=== PATIENT | male | born 1965 | race Caucasian/White ===

== ENCOUNTER 2025-05-12 12:55 | Emergency (ER) | payer BC, SELFPAY ==
--- OUTSIDE RECORDS SUMMARY | 2024-05-15 10:00 | XMS_ITS ---
Author Organization [facility] Address [address] [place] [address] Care Team Providers Care Vfx Artist Name Role Phone Chavo Marin MD Primary Care Provider Chyna Burkett Unavailable [phone] Robert Deluna Unavailable [phone] REASON FOR VISIT Screening for colon cancer Medications Medication SIG (Take, Route, Frequency, Duration) Notes Start Date End Date Status Vitamin D3 125 MCG (5000 UT) Capsule 1 capsule Orally Once a day Active Vitamin B-1 250 MG Tablet 1 tablet Orally daily Patient is taking 300 mg daily Active Reglan 10 MG Tablet 1 tablet as directed Orally once; Duration: 1 day 05/01/2024 Active Zinc Gluconate 30 MG Tablet 1 tablet Ora lly Once a day Active amLODIPine Besylate 5 MG Tablet 1 tablet Orally Once a day; Duration: 30 days 05/09/2024 Active Vitamin B Complex - Capsule 1 capsule Orally daily 05/01/2024 Active Tamsulosin HCl 0.4 MG Capsule 1 capsule Orally Once a day Active Losartan Potassium 50 MG Tablet 1 tablet twice a day; Duration: 90 days Active Quercetin Complex Immune - Capsule 1 capsule Orally daily Activ e Kenton 3 1000 MG Capsule 1 capsule Orally Three times a day Active Aspirin Adult Low Dose 81 MG Tablet Delayed Release 1 tablet Orally Once a day Active Bisoprolol Fumarate 5 MG Tablet 1 tablet Orally Once a day; Duration: 30 days 03/30/2024 Active Chromium GTF 200 MCG Tablet 1 tablet Ora lly Once a day Active Chlorthalidone 50 MG Tablet 1 tablet in the morning with food Orally once daily; Duration: 90 days Active Green Tea 250 MG Capsule 1 capsule Orally daily Active Encounters Encounter Location Date Provider Diagnosis [facility] [address] [place] [address] 05/15/2024 Robert Deluna Plan Of Treatment Next Appt Details Provider Name:Vale rosen, 06/19/2025 01:00:00 PM, [address], [place], [address], Provider Name:Davey Houston , 09/11/2025 08:00:00 AM, [address] [place], [address], Provider Name:Davey Houston , 09/11/2025 08:30:00 AM, [address] [place], [address], Progress Notes * Davey BAXTERDOB:1965 (59 yo M)Acc No.[id number]:05/15/2024 History and Physical Patient: Davey Das Provider: Reynold Deluna MD :1965 A ge:58 Y S ex:Male Date:05/15/2024 Address:[address] Pcp:Chavo Marin MD Check Out:09:09 AM [facility] Subjective: * Chief Complaints: * S creening for colon cancer * Medications: T akingAspirin Adult Low Dose 81 MG Tablet Delayed Release 1 tablet Orally Once a day Bisoprolol Fumarate 5 MG Tablet 1 tablet Orally Once a day Chlorthalidone 50 MG Tablet 1 tablet in the morning with food Orally once daily Chromium GTF 200 MCG Tablet 1 tablet Orally Once a day Green Tea 250 MG Capsule 1 capsule Orally daily Losartan Potassium 50 MG Tablet 1 tablet twice a day Kenton 3 1000 MG Capsule 1 capsule Orally Three times a day Quercetin Complex Immune - Capsule 1 capsule Orally daily Tamsulosin HCl 0.4 MG Capsule 1 capsule Orally Once a day Vitamin B Complex - Capsule 1 capsule Orally daily Vitamin B-1 250 MG Tablet 1 tablet Orally daily Patient is taking 300 mg dailyVitamin D3 125 MCG (5000 UT) Capsule 1 capsule Orally Once a day Zinc Gluconate 30 MG Tablet 1 tablet Orally Once a day Reglan 10 MG Tablet 1 tablet as directed Orally once amLODIPine Besylate 5 MG Tablet 1 tablet Orally Once a day Taking Aspirin Adult Low Dose 81 MG Tablet Delayed Release 1 tablet Orally Once a day Taking Bisoprolol Fumarate 5 MG Tablet 1 tablet Orally Once a day Taking Chlorthalidone 50 MG Tablet 1 tablet in the morning with food Orally once daily Taking Chromium GTF 200 MCG Tablet 1 tablet Orally Once a day Taking Green Tea 250 MG Capsule 1 capsule Orally daily Taking Losartan Potassium 50 MG Tablet 1 tablet twice a day Taking Kenton 3 1000 MG Capsule 1 capsule Orally Three times a day Taking Quercetin Complex Immune - Capsule 1 capsule Orally daily Taking Tamsulosin HCl 0.4 MG Capsule 1 capsule Orally Once a day Taking Vitamin B Complex - Capsule 1 capsule Orally daily Taking Vitamin B-1 250 MG Tablet 1 tablet Orally daily Patient is taking 300 mg dailyTaking Vitamin D3 125 MCG (5000 UT) Capsule 1 capsule Orally Once a day Taking Zinc Gluconate 30 MG Tablet 1 tablet Orally Once a day Taking Reglan 10 MG Tablet 1 tablet as directed Orally once Taking amLODIPine Besylate 5 MG Tablet 1 tablet Orally Once a day Billing Information: * Procedure Codes: * Electronic signature of Bobd brendan Deluna MD on 05/12/2025 at 01:03 PM [facility] Sign off status: Pending * Provider: Reynold Deluna MD Date: 07/16/2023 Generated for Jessica fletcher/Raheem/Rigo on: 07/13/2024 01:03 PM [facility]
--- OUTSIDE RECORDS SUMMARY | 2024-09-11 02:00 | XMS_ITS ---
Author Organization [facility] Address [address] [place] [address] Care Team Providers Care Finish Repairer Name Role Phone Tomas VELOZ, Chavo Primary Care Provider Chyna Burkett Unavailable [phone] Davey Houston Unavailable [phone] Encounters Encounter Location Date Provider Diagnosis [facility] [address] [place] [address] 09/11/2024 Davey Houston Plan Of Treatment Next Appt Details Provider Name:Vale rosen, 06/19/2025 01:00:00 PM, [address], [place], [address], Provider Name:Davey Houston , 09/11/2025 08:00:00 AM, [address] [place] [address], [place], [address], Provider Name:Davey Houston , 09/11/2025 08:30:00 AM, [address] [place] [address], [place], [address], Progress Notes * Davey BAXTERDOB:1965 (59 yo M)Acc No.[id number]:09/11/2024 Patient: Davey Das Provider: Hunter Houston MD :1965 A ge:58 Y S ex:Male Date:09/11/2024 Address: [address] [place], [place] [phone] Pcp:Chavo Marin MD Check In:07:50 AM CSTCheck O ut:08:25 AM PROGRAMMING DIRECTOR Billing Information: * Procedure Codes: * Electronic signature of Gricelda Houston MD on 05/12/2025 at 01:03 PM PROGRAMMING DIRECTOR Sign off status: Pending * Provider: Hunter Houston MD Date: 0 09/11/2024 Generated for Jessica fletcher/Raheem/Salvatoreitting on: 1 07/13/2024 01:03 PM PROGRAMMING DIRECTOR
--- OUTSIDE RECORDS SUMMARY | 2024-09-18 01:15 | XMS_ITS ---
Author Organization [facility] Address [address] [place] [address] Care Team Providers Care Blacktop Spreader Name Role Phone Tomas VELOZ, Chavo Primary Care Provider Chyna Burkett Unavailable [phone] Davey Houston Unavailable [phone] Encounters Encounter Location Date Provider Diagnosis [facility] [address] [place] [address] 09/18/2024 Davey Houston Plan Of Treatment Next Appt Details Provider Name:Vale rosen, 06/19/2025 01:00:00 PM, [address], [place], [address], Provider Name:Davey Houston , 09/11/2025 08:00:00 AM, [address] [place] [address], [place], [address], Provider Name:Davey Houston , 09/11/2025 08:30:00 AM, [address] [place] [address], [place], [address], Progress Notes * Davey BAXTERDOB:1965 (59 yo M)Acc No.[id number]:09/18/2024 Patient: Davey Das Provider: Hunter Houston MD :1965 A ge:58 Y S ex:Male Date:09/18/2024 Address: [address] [place], [place] [phone] Pcp:Chavo Marin MD Check In:07:05 AM CSTCheshanti Roberts ut:07:47 AM JEEP DRIVER Billing Information: * Procedure Codes: * Electronic signature of Gricelda Houston MD on 05/12/2025 at 01:04 PM JEEP DRIVER Sign off status: Pending * Provider: Hunter Houston MD Date: 0 09/18/2024 Generated for Jessica fletcher/Raheem/Salvatoreitting on: 1 07/13/2024 01:04 PM JEEP DRIVER
--- OUTSIDE RECORDS SUMMARY | 2024-09-25 01:15 | XMS_ITS ---
Author Organization [facility] Address [address] [place] [address] Care Team Providers Care Billboard Poster Name Role Phone Tomas VELOZ, Chavo Primary Care Provider Chyna Burkett Unavailable [phone] Davey Houston Unavailable [phone] Encounters Encounter Location Date Provider Diagnosis [facility] [address] [place] [address] 09/25/2024 Davey Houston Plan Of Treatment Next Appt Details Provider Name:Vale rosen, 06/19/2025 01:00:00 PM, [address], [place], [address], Provider Name:Davey Houston , 09/11/2025 08:00:00 AM, [address] [place] [address], [place], [address], Provider Name:Davey Houston , 09/11/2025 08:30:00 AM, [address] [place] [address], [place], [address], Progress Notes * Davey BAXTERDOB:1965 (59 yo M)Acc No.[id number]:09/25/2024 Patient: Davey Das Provider: Hunter Houston MD :1965 A ge:58 Y S ex:Male Date:09/25/2024 Address: [address] [place], [place] [phone] Pcp:Chavo Marin MD * Electronic signature of Gricelda Houston MD on 05/12/2025 at 01:05 PM DIRECTOR EMPLOYEE COMMUNICATIONS Sign off status: Pending * Provider: Hunter Houston MD Date: 0 09/25/2024 Generated for Jessica fletcher/Raheem/Salvatoreitting on: 1 07/13/2024 01:05 PM DIRECTOR EMPLOYEE COMMUNICATIONS
--- OUTSIDE RECORDS SUMMARY | 2024-10-02 07:00 | XMS_ITS ---
Author Organization [facility] Address [address] [place] [address] Care Team Providers Care Data Control Assistant Name Role Phone Tomas VELOZ, Chavo Primary Care Provider Chyna Burkett Unavailable [phone] Davey Houston Unavailable [phone] Encounters Encounter Location Date Provider Diagnosis [facility] [address] [place] [address] 10/02/2024 Davey Houston Plan Of Treatment Next Appt Details Provider Name:Vale rosen, 06/19/2025 01:00:00 PM, [address], [place], [address], Provider Name:Davey Houston , 09/11/2025 08:00:00 AM, [address] [place] [address], [place], [address], Provider Name:Davey Houston , 09/11/2025 08:30:00 AM, [address] [place] [address], [place], [address], Progress Notes * Davey BAXTERDOB:1965 (59 yo M)Acc No.[id number]:10/02/2024 Patient: Davey Das Provider: Hunter Houston MD :1965 A ge:59 Y S ex:Male Date:10/02/2024 Address: [address] [place], [place] [phone] Pcp:Chavo Marin MD Check In:12:48 PM CSTCheck O ut:01:39 PM DIRECTOR CONSUMER AFFAIRS Billing Information: * Procedure Codes: * Electronic signature of Gricelda Houston MD on 05/12/2025 at 01:05 PM DIRECTOR CONSUMER AFFAIRS Sign off status: Pending * Provider: Hunter Houston MD Date: 0 10/02/2024 Generated for Jessica fletcher/Raheem/Salvatoreitting on: 1 07/13/2024 01:05 PM DIRECTOR CONSUMER AFFAIRS
--- OUTSIDE RECORDS SUMMARY | 2025-05-08 11:00 | XMS_ITS ---
Author Organization [facility] Address [address] [place] [address] Care Team Providers Care Pin Inserter Name Role Phone Chavo Marin Primary Care Provider UnavailFRANCE Balbuena Unavailable [phone] Valdemar Larkin MD Unavailable Lasha Pichardo Unavailable [phone] REASON FOR VISIT 3-4 mo w/ labs Encounters Encounter Location Date Provider Diagnosis [facility] [address] [place] [facility] [place] [address] 05/08/2025 Lasha Pichardo Plan Of Treatment Next Appt Details Provider Name:Lasha Kylee, 05/21/2025 09:20:00 AM, [address] [place], [address], Progress Notes * Davey BAXTERDOB:1965 (59 yo M)Acc No.[id number]:05/08/2025 Progress Notes Patient: Randell DUNNE Davey Talbert Provider: Imelda Pichardo APRN :1965 A ge:59 Y S ex:Male Date:05/08/2025 Address:[address] [place], [place] [phone] Pcp:Chavo Marin Subjective: * Chief Complaints: * 1 . 3-4 mo w/ labs. * Medical History: Objective: * Vitals: Assessment: Plan: * Treatment: * Billing Information: * Visit Code: * Procedure Codes: * Electronic signature of Meliton Pichardo APRN on 05/12/2025 at 01:03 PM BARREL CAP SETTER Sign off status: Pending * Provider: Imelda Pichardo APRN Date: 07/09/2024 Generated for Jessica Theodore on: 07/13/2024 01:03 PM BARREL CAP SETTER
[2025-05-12 13:01] VITALS: BP 148/75; PULSE 98; RESP 26; TEMP 36.6; O2SAT 96; BMI 37.6
[2025-05-12 13:03] VITALS: PULSE 95; O2SAT 100
--- NOTE | 2025-05-12 13:03 | ECG_ITS ---
[facility] Test Date: 2025-05-12 Pat Name: Davey Baxter Department: Room: Gender: Male Team Foreman: : 1965 Requested By: Mily Mejias Order Number: [id number] Mingo MD: Miki Horn M.D. Measurements Intervals [place] Rate: 89 P: 58 GA: 167 QRS: 33 QRSD: 96 T: 42 QT: 342 QTc: 417 Interpretive Statements SINUS RHYTHM WITH SINUS ARRHYTHMIA No previous ECG available for comparison Electronically Signed On 05-12-2025 19:22:38 SURGICAL CODER by Miki Horn M.D. [email or web address]
--- OUTSIDE RECORDS SUMMARY | 2025-05-12 13:03 | XMS_ITS | Patient Health Record ---
Author Organization [facility] Address [address] [place] [address] Care Team Providers Care Civil Engineering Technician Name Role Phone MARIELENA ARREDONDO Primary Care Provider PETRONA Sanchez Unavailable [phone] Allergies Allergen (clinical drug ingredient) Drug/Non Drug Allergy documented on EMR Reaction Allergy Type Onset Date Status Substance with penicillin structure and antibacterial mechanism of action (substance) Penicillins shortness of breath Drug Allergy Active Results Component Value Reference Range Notes CBC Reflex Man Diff 76682, 8 5007 Reviewed date:04/23/2025 04:52:09 PM Interpretation: Performing Lab: Notes/Report: WBC 10.5 4.5-11.0 X10'3 RBC 4.75 4.50-5.90 X10'6 Hgb 14.5 13.5-17.5 G/DL Hct 42.8 41.0-53.0 % MCV 90.1 80.0-100.0 FL MCH 30.5 27.0-31.0 PG MCHC 33.9 31.0-37.0 G/DL Platelet 287 150-400 X10'3 RDW-SD 42.3 35.0-49.0 FL RDW-CV 12.7 12.2-15.6 % MPV 10.0 9.2-12.0 FL Review Auto Diff Conf Testing perfo rmed at: [facility] [address] [place] [address] CLIA ID [id number] Estradiol Level 19864 Reviewed date:04/23/2025 04:51:50 PM Interpretation: Performing Lab: Notes/Report: Estradiol 77 Males < 0-52 Follicular Phase 11-165 Midcycle 146-526 Luteal Phase 33-133 Postmenopausal Female < 0-37 Test performed with Siemens Estradiol reagent assay. Siemens has confirmed the drug fulvestrant (Faslodex) may cause falsely elevated estradiol results when performed with this assay method. Fulvestrant (Faslodex) is an estrogen receptor antagonist which is used in the treatment of stage IV recurrent breast cancer in post-menopausal women with estrogen receptor positive breast cancer. Fulvestrant is used when other anti-estrogen drugs have failed. Fulvestrant has a similar chemical structure to estradiol and may cross-react with antibodies used in immunoassays. Testing performed at: [address] [place] [address] CLIA ID [id number] LH, Luteinizing Hormone 8300 2 Reviewed date:04/23/2025 04:51:47 PM Interpretation: Performing Lab: Notes/Report: Luteinizing Hrm 14.78 Reference Ranges: Normal menstruating. Follicular Phase 1.9-12.5. Midcycle Peak 8.7-76.3. Luteal Phase 0.5-16.9. <0.1-1.5. Postmenopausal 15.9-54.0. Contraceptives 0.7-5.6. Males 20-70 Years 1.5-9.3. >70 Years 3.1-34.6. Performed on the [employer] Solution IM Testing performed at: [address] [place] [address] CLIA ID [id number] Testosterone Total 73519 Reviewed date:04/23/2025 04:52:01 PM Interpretation: Performing Lab: Notes/Report: Testoster Tot 570.19 87.00-780.00 NG/DL Performed on the [employer] IM Analyzer Testing performed at: [address] [place] [address] CLIA ID [id number] WBC Auto Diff--51550 Reviewed date:04/23/2025 04:52:05 PM Interpretation: Performing Lab: Notes/Report: Added by Discern Rules Neutro Auto% 70.1 40.0-70.0 % Lymph Auto% 20.1 22.0-44.0 % [place] Auto% 6.7 3.0-7.0 % Eos Auto% 1.5 2.0-4.0 % Baso Auto% 0.9 0.0-1.0 % NRBC% .00 .00-.20 /100 int act WBC's Neutro Abs 7.34 .80-7.70 Absolute Neutrophil Count 7340 Lymph Abs 2.10 .10-4.10 [place] Abs .70 .20-1.00 Eos Abs .16 .00-.40 Baso Abs .09 .00-.20 NRBC# .00 .00-.20 Imm Gran Abs .07 .00-.10 Imm Gran% .7 .0-.4 % Testing perform ed at: [address] [address] CLIA ID [id number] Reason For Referral No Information Medications Medication SIG (Take, Route, Frequency, Duration) Notes Start Date End Date Status Cinnamon 500 MG as directed Orally Active B Complex 100 Active Chlorthalidone 25 MG 1 tablet in the mor sae with food Orally Once a day Active Zinc 100 MG 1 tablet Orally Once a day Active Lisinopril 20 MG 1 tablet Orally twic e a day Active Simvastatin 20 MG 1 tablet in the even ing Orally Once a day Active Doxycycline Hyclate 100 MG 1 capsule Ora lly two times a day Active Airborne Gummies - as directed Orally Active Gugvz-3-annj Ethyl Esters 1 GM 2 capsules Orally Twice a day Active Apple Cider Vinegar 500 MG as directed Orally Active Quercetin Complex Immune - as directed Orally Active Vitamin D3 10 MCG (400 UNIT) 1 tablet Or ally Once a day Active Silymarin - as directed Orally Active Problems Problem Type SNOMED Code ICD Code Onset Dates Problem Status W/U Status Risk Notes Problem Abdominal aortic aneurysm without rupture (03186355) Abdominal aortic aneurysm, without rupture (I71.4) Active confirmed Problem Acute prostatitis (14664460) Acute prostatitis (N41.0) Active confirmed Problem Erectile dysfunction co-occurrent and due to arterial insufficiency (disorder) (050559227475666) Erectile dysfunction due to arterial insufficiency (N52.01) Active confirmed Problem Benign prostatic hypertrophy without outflow obstruction (151661415) Benign prostatic hyperplasia without lower urinary tract symptoms (N40.0) Active confirmed Plan Of Treatment Pending Test Test Name Order Date PSA, TOTAL (5363) 05/12/2021 Insurance Providers Payer Name Payer Address Payer Phone Subscriber Number Group Number Insured Name Patient Relationship to Insured Coverage Start Date Coverage End Date [employer] OF [employer] [address] [place] [address] [phone] [id number] Davey Baxter Self - patient is the insured Medical (General) History Medical History History ICD Code melanoma High Blood Pressure Elevated PSA Hyperlipidemia
--- OUTSIDE RECORDS SUMMARY | 2025-05-12 13:03 | XMS_ITS | Patient Health Record ---
Author Organization [facility] Address [address] [place] [address] Care Team Providers Care Associate Dean Of Students Name Role Phone Chavo Marin MD Primary Care Provider Chyna Burkett Unavailable [phone] Robert Deluna Unavailable [phone] JevonDavey granda Unavailable [phone] Gorge Valentine Unavailable [phone] Allergies Allergen (clinical drug ingredient) Drug/Non Drug Allergy documented on EMR Reaction Allergy Type Onset Date Status bee stings Unknown Allergy Active Substance with penicillin structure and antibacterial mechanism of action (substance) penicillins Unknown Drug Allergy Active Results Component Value Reference Range Notes US Doppler Renal Artery-9397 5 Reviewed date:10/13/2024 11:19:00 AM Interpretation: Performing Lab: Notes/Report: See Below For Report US Doppler Renal Artery Read See Below For Report Echo with and without Contra st [id number] Reviewed date:10/13/2024 11:17:28 AM Interpretation: Performing Lab: Notes/Report: Cardiopulmonary Services Name: DAVEY BAXTER Study Date: 10/02/2024 : 1965 Patient Location: [facility] Age: 59 yrs Gender: Male Height: 68 in Weight: 266 lb BP: 142/78 mmHg HR: 60 BSA: 2.3 m2 History: SOB, HTN, hyperlipidemia, CAD Reason For Study: SOB Interpretation Summary A complete two-dimensional transthoracic echocardiogram was performed (2D, M- mode, Doppler and color flow Doppler). This echocardiogram is technically difficult due to morbid obesity. Due to suboptimal imaging, lumason contrast agent was given to opacify the left ventricular chamber and to improve the left ventricular endocardial border. Left ventricular systolic function is borderline reduced. Left Ventricular Function is estimated to be 50-55%. There is borderline concentric left ventricular hypertrophy. The right ventricle is mild to moderately dilated. Small pericardial effusion. EKG Normal sinus rhythm. Left Ventricle The left ventricle is normal in size. There is borderline concentric left ventricular hypertrophy. Left Ventricular Function is estimated to be 50-55%. Left ventricular systolic function is borderline reduced. Due to suboptimal imaging, lumason contrast agent was given to opacify the left ventricular chamber and to improve the left ventricular endocardial border. Right Ventricle The right ventricle is mild to moderately dilated. The right ventricular systolic function is normal. Atria The left atrial size is normal. Right atrial size is normal. Pericardium/Pleural Small pericardial effusion. Mitral Valve The mitral valve is normal. There is trace mitral regurgitation. Aortic Valve There is mild aortic valve sclerosis without evidence of stenosis. No hemodynamically significant valvular aortic stenosis. Trace aortic regurgitation. Tricuspid Valve The triscupid valve leaflets appear normal. There is no stenosis, fluttering, or prolapse. There is trace tricuspid regurgitation. Pulmonic Valve The pulmonic valve is normal in structure and function. Trace pulmonic valvular regurgitation. MMode/2D Measurements & Calculations RVDd: 4.6 cm LVIDd: 5.4 cm FS: 21.3 % IVSd: 0.89 cm LVIDs: 4.2 cm EDV(Teich): 140.4 ml LVPWd: 0.98 cm ESV(Teich): 80.4 ml EF(Teich): 42.8 % asc Aorta Diam: 3.4 cm LVOT diam: 1.9 cm EDV(MOD-sp4): 134.4 ml ESV(MOD-sp4): 61.2 ml LVOT area: 2.9 cm2 EF(MOD-sp4): 54.4 % CO(MOD-sp4): 3.8 l/min SV(MOD-sp4): 73.2 ml Time Measurements Aortic HR: 50.0 BPM MM HR: 51.7 BPM Pulm. R-R: 1.2 sec Pulm. HR: 52.1 BPM Doppler Measurements & Calculations MV E max patrice: 69.8 cm/sec MV dec slope: 461.4 cm/sec2 Ao V2 max: 140.6 cm/sec MV A max patrice: 68.0 cm/sec MV dec time: 0.16 sec Ao max P.9 mmHg MV E/A: 1.0 Ao V2 mean: 103.2 cm/sec Ao mean P.8 mmHg Ao V2 VTI: 30.6 cm JARAD(I,D): 2.4 cm2 JARAD(V,D): 2.2 cm2 LV V1 max P.7 mmHg CO(LVOT): 3.6 l/min PA V2 max: 94.0 cm/sec LV V1 mean P.6 mmHg SV(LVOT): 72.2 ml PA max P.5 mmHg LV V1 max: 108.4 cm/sec PA V2 mean: 60.8 cm/sec LV V1 mean: 74.8 cm/sec PA mean P.7 mmHg LV V1 VTI: 24.8 cm PA V2 VTI: 20.0 cm PI end-d patrice: 60.3 cm/sec RV V1 max P.3 mmHg TR max patrice: 236.7 cm/sec RV V1 mean P.2 mmHg TR max P.4 mmHg RV V1 max: 75.9 cm/sec RV V1 mean: 49.6 cm/sec RV V1 VTI: 17.8 cm Ordering Physician: Davey Houston Referring Physician: Chyna Cobb Performed By: Sally Saunders RDCS US Doppler Renal Artery-9397 5 Reviewed date:10/13/2024 11:19:00 AM Interpretation: Performing Lab: Notes/Report: [id number]=iSite [id number]=iSite Echo with and without Contra st [id number] Reviewed date:10/13/2024 11:17:28 AM Interpretation: Performing Lab: Notes/Report: oat=[id number]=iSite US Doppler Renal Artery-9397 5 Reviewed date:09/04/2024 09:07:28 AM Interpretation: Performing Lab: Notes/Report: US Ankle Brachial Pressure I [id number] Reviewed date:08/31/2024 07:45:27 AM Interpretation: Performing Lab: Notes/Report: Echo Complete [id number] Reviewed date:09/04/2024 09:08:42 AM Interpretation: Performing Lab: Notes/Report: US Ankle Brachial Pressure I [id number] Reviewed date:09/15/2024 11:16:02 AM Interpretation: Performing Lab: Notes/Report: dot=[id number]=iSite US Ankle Brachial Pressure I ndex-[id number] Reviewed date:09/15/2024 11:15:56 AM Interpretation: Performing Lab: Notes/Report: See Below For Report US Ankle Brachial Pressure Index Read See Below For Report Reason For Referral Reason SOB-Pulmonology [place] Diagnosis 1 SOB (shortness of br eath) on exertion (R06.02) Referral Organization [facility] Referring Provider First Name Chyna Referring Provider Last Name Reza Referring Provider Speciality Nurse Prac neptalir Referred Provider [facility], Pulmon olgy Referred Provider Specialty Pulmonology Referral Priority Routine Medications Medication SIG (Take, Route, Frequency, Duration) Notes Start Date End Date Status Quercetin Complex Immune - Capsule 1 capsule Orally daily Activ e Losartan Potassium 50 MG Tablet TAKE 1 TABLET BY MOUTH TWICE DAILY; Duration: 90 Active [place] 3 1000 MG Capsule 1 capsule Orally Three times a day Active Bisoprolol Fumarate 5 MG Tablet TAKE 1 TABLET BY MOUTH DAILY; Duration: 90 Active Tamsulosin HCl 0.4 MG Capsule 1 capsule Orally Once a day Active Berberine HCI 500 MG Capsule as directed Orally twice a day Active Vitamin B Complex - Capsule 1 capsule Orally daily 05/01/2024 Active Chlorthalidone 25 MG Tablet 1 tablet in the morning with food Orally daily; Duration: 90 days 04/23/2025 10/20/2025 Active Vitamin B-1 250 MG Tablet 1 tablet Orally daily Patient is taking 300 mg daily Active Green Tea 250 MG Capsule 1 capsule Orally daily Active Isosorbide Mononitrate ER 30 MG Tablet Extended Release 24 Hour TAKE 1 TABLET BY MOUTH EVERY MORNING; Duration: 90 Active Spironolactone 25 MG Tablet 1 tablet Ora lly Twice a day; Duration: 90 days 04/23/2025 Active Vitamin D3 125 MCG (5000 UT) Capsule 1 capsule Orally Once a day Active Chromium GTF 200 MCG Tablet 1 tablet Ora lly Once a day Active Zinc Gluconate 30 MG Tablet 1 tablet Ora lly Once a day Active Immunizations Vaccine Route Administration Date Status Comme nts Influenza (whole), CPT 36676 Inactive Unknown 04/12/2019 Administered Social History Tobacco Use: Social History Observation Description Date Details (start date - stop date) Never Smoker NA - NA Social History Drugs/Alcohol: Social Info Question Answer Notes Caffeine Intake: 1-2 cups per day Drug/Alcohol: Social Info Question Answer Notes AUDIT-C (Standard) Did you have a drink containing alcohol in the past year? Yes How often did you have six or more drinks on one occasion in the past year? Never (0 point) How many drinks did you have on a typical day when you were drinking in the past year? 1 or 2 drinks (0 point) How often did you have a drink containing alcohol in the past year? Monthly or less (1 point) Points 1 Interpretation Negative Tobacco Use: Social Info Question Answer Notes Tobacco Control (Standard) Tobacco use: Nonsmoker Additional Findings: Tobacco non-user Ex-user of moist powdered tobacco Additional Details Category Social Info Options Details Drugs/Alcohol: Do you drink alcohol? No Section Notes: Never smoked, reports Caffie ne, Drinks Alcohol Never smoked, reports Caffie ne, Drinks Alcohol Never smoked, reports Caffie ne, Drinks Alcohol Never smoked, reports Caffie ne, Drinks Alcohol Never smoked, reports Caffie ne, Drinks Alcohol Never smoked Caffiene Drinks Alcohol Never smoked Caffiene Drinks Alcohol Never smoked Caffiene Drinks Alcohol Never smoked, reports Caffie ne, Drinks Alcohol Never smoked Caffiene Drinks Alcohol Never smoked Caffiene Drinks Alcohol Caffeine - admits, coffee Alcohol - rare Problems Problem Type SNOMED Code ICD Code Onset Dates Problem Status W/U Status Risk Notes Problem Information temporarily unavailable Nonrheumatic aortic (valve) insufficiency (I35.1) Active confirmed Problem Information temporarily unavailable Shortness of breath (R06.02) Active confirmed Problem Information temporarily unavailable Nocturia (R35.1) Active confirmed Problem Information temporarily unavailable Erectile dysfunction, unspecified erectile dysfunction type (N52.9) Active confirmed Problem Information temporarily unavailable Erectile dysfunction, unspecified erectile dysfunction type (N52.9) Active confirmed Problem Information temporarily unavailable Elevated PSA (R97.20) Active confirmed Problem Information temporarily unavailable Essential hypertension (I10) Active confirmed Problem Information temporarily unavailable VIDES (dyspnea on exertion) (R06.09) Active confirmed Problem Information temporarily unavailable Atherosclerosis of [place] coronary artery of [place] heart without angina pectoris (I25.10) Active confirmed Problem Information temporarily unavailable HUMPHREY (obstructive sleep apnea) (G47.33) Active confirmed Problem Information temporarily unavailable Prostate cancer screening (Z12.5) Active confirmed Problem Information temporarily unavailable PVD (peripheral vascular disease) (I73.9) Active confirmed Problem Information temporarily unavailable Family history of prostate cancer (Z80.42) Active confirmed Problem Information temporarily unavailable Urinary urgency (R39.15) Active confirmed Problem Information temporarily unavailable History of elevated PSA (Z87.898) Active confirmed Problem Information temporarily unavailable Fatigue (R53.83) Active confirmed Problem Information temporarily unavailable Hyperlipidemia (E78.5) Active confirmed Problem Information temporarily unavailable BPH loc w urin obs/LUTS (N40.1) Active confirmed Vital Signs Heart Rate 58 /min 04/23/2025 Blood pressure diastolic 66 mm Hg 04/23/2025 Oximetry 95 % 04/23/2025 Height-cm 173.99 cm 04/23/2025 Weight-kg 116.03 kg 04/23/2025 Height 68.5 in 04/23/2025 Blood pressure systolic 118 mm Hg 04/23/2025 Weight 255.8 lbs 04/23/2025 BMI 38.32 kg/m2 04/23/2025 Encounters Encounter Location Date Provider Diagnosis [facility] [address] [place] [address], [place] [address] 09/11/2024 Davey Houston [facility] [address] [place] [address] 10/02/2024 Davey Houston [facility] [address] [place] [address] 08/28/2024 Chynaraman [facility] Essential hypertension I10 ; SOB (shortness of breath) on exertion R06.02 ; Hyperlipidemia E78.5 ; Nonrheumatic aortic (valve) insufficiency I35.1 ; Atherosclerosis of [place] coronary artery of [place] heart without angina pectoris I25.10 ; HUMPHREY (obstructive sleep apnea) G47.33 and PVD (peripheral vascular disease) I73.9 [facility] [address] [place] [address], [place] [address] 04/23/2025 Chynaraman Farnsworthon Essential hypertension I10 ; Hyperlipidemia E78.5 ; Nonrheumatic aortic (valve) insufficiency I35.1 ; SOB (shortness of breath) on exertion R06.02 ; Atherosclerosis of [place] coronary artery of [place] heart without angina pectoris I25.10 and HUMPHREY (obstructive sleep apnea) G47.33 [facility] [address] [place] [address], [place] [address] 12/18/2024 Davey Houston Essential hypertension I10 ; SOB (shortness of breath) on exertion R06.02 ; Hyperlipidemia E78.5 ; Nonrheumatic aortic (valve) insufficiency I35.1 ; Atherosclerosis of [place] coronary artery of [place] heart without angina pectoris I25.10 ; HUMPHREY (obstructive sleep apnea) G47.33 ; Other fatigue R53.83 ; Other chest pain R07.89 and Swelling R60.9 [facility] [address] [place] [address] 05/15/2024 Robert Deluna [facility] [address] [place] [address], [place] [address] 09/18/2024 Davey Houston [facility] [address] [place] [address], [place] [address] 05/08/2025 [facility] [address] [place] [address], [place] [address] 04/20/2025 [facility] [address] [place] [address] 02/23/2025 Gorge Valentine [facility] [address] [place] [address], [place] [address] 10/03/2024 [facility] [address] [place] [address], [place] [address] 10/02/2024 Davey Houston Atherosclerosis of [place] coronary artery of [place] heart without angina pectoris I25.10 ; SOB (shortness of breath) on exertion R06.02 ; Nonrheumatic aortic (valve) insufficiency I35.1 and Fatigue R53.83 [facility] [address] [place] [address], [place] [address] 09/27/2024 Davey [facility] [address] [place] [address], [place] [address] 09/18/2024 Chyna Cobb [facility] [address] [place] [address], [place] [address] 09/12/2024 [facility] [address] [place] [address] 05/22/2024 Robert Deluna Assessments Encounter Date Diagnosis (ICD Code) Assessment Notes Treatment Notes Treatment Clinical Notes Section Notes 04/23/2025 Essential hypertension (ICD-10 - I10) Since recent medication changes, blood pressure has been much better controlled. Continue with current regimen and continue monitoring closely at home. 04/23/2025 Hyperlipidemia (ICD-10 - E78.5) Continue with dietary control as he has a statin intolerance due to muscle cramps. 12/18/2024 Essential hypertension (ICD-10 - I10) The patient reports labile BP at home. Decrease chlorthalidone to 25 mg once per day. Start spironolactone 25 mg BID. Continue current dose of bisoprolol, isosorbide, and losartan. I have encouraged the patient to continue maintaining a BP log. 12/18/2024 SOB (shortness of breath) on exertion (ICD-10 - R06.02) The patient recently had PFTs performed, interpretation pending. 10/02/2024 Atherosclerosis of [place] coronary artery of [place] heart without angina pectoris (ICD-10 - I25.10) 10/02/2024 SOB (shortness of breath) on exertion (ICD-10 - R06.02) 08/28/2024 Essential hypertension (ICD-10 - I10) 12/18/2024 Hyperlipidemia (ICD-10 - E78.5) He could not tolerate statins due to arthralgia. 10/02/2024 Nonrheumatic aortic (valve) insufficiency (ICD-10 - I35.1) 08/28/2024 SOB (shortness of breath) on exertion (ICD-10 - R06.02) 04/23/2025 Nonrheumatic aortic (valve) insufficiency (ICD-10 - I35.1) Continue with routine echocardiography for surveillance. 12/18/2024 Nonrheumatic aortic (valve) insufficiency (ICD-10 - I35.1) 04/23/2025 SOB (shortness of breath) on exertion (ICD-10 - R06.02) 08/28/2024 Hyperlipidemia (ICD-10 - E78.5) He could not tolerate multiple statins. 10/02/2024 Fatigue (ICD-10 - R53.83) 08/28/2024 Nonrheumatic aortic (valve) insufficiency (ICD-10 - I35.1) Mild aortic regurgitation per July 2023 echo. Repeat echo due to worening shortness of breath. 12/18/2024 Atherosclerosis of [place] coronary artery of [place] heart without angina pectoris (ICD-10 - I25.10) Per elevated coronary calcium score. Patient is not having anginal symptoms. Continue conservative therapy with aspirin and isosorbide. 04/23/2025 Atherosclerosis of [place] coronary artery of [place] heart without angina pectoris (ICD-10 - I25.10) Per elevated coronary calcium score. Patient is not having anginal symptoms. Continue conservative therapy with aspirin and isosorbide. 04/23/2025 HUMPHREY (obstructive sleep apnea) (ICD-10 - G47.33) 12/18/2024 HUMPHREY (obstructive sleep apnea) (ICD-10 - G47.33) 08/28/2024 Atherosclerosis of [place] coronary artery of [place] heart without angina pectoris (ICD-10 - I25.10) His coronary calcium score has increased to 240, but he is not having anginal symptoms. There is no indication for further ischemic work-up at this time. 08/28/2024 HUMPHREY (obstructive sleep apnea) (ICD-10 - G47.33) 12/18/2024 Other fatigue (ICD-10 - R53.83) 12/18/2024 Other chest pain (ICD-10 - R07.89) 08/28/2024 PVD (peripheral vascular disease) (ICD-10 - I73.9) 12/18/2024 Swelling (ICD-10 - R60.9) 12/18/2024 Other Follow up in 4- 6 months. Mireille Felix, am scribing for Davey Houston MD. Davey Felix MD, personally performed the services prescribed in this documentation , as scribed by Mireille Jin, and it is both accurate and complete. 04/23/2025 Other Follow up in 4- 6 months. Plan Of Treatment Pending Test Test Name Order Date Blood Urea Nitrogen (BUN) [id number] 06/19/19 22 Creatinine (B) 53816 06/19/2021 PSA Diagnostic--[id number] 01/23/2022 US Ankle Arm Indicies-84059 09/12/2024 Colonoscopy, High Risk Screening-G0105 1 07/02/2023 Next Appt Details Provider Name:Vale rosen, 06/19/2025 01:00:00 PM, [address], [place], [address], Provider Name:Davey Houtson , 09/11/2025 08:00:00 AM, [address] [place], [address], Provider Name:Davey Houston , 09/11/2025 08:30:00 AM, [address] [place], [address], Insurance Providers Payer Name Payer Address Payer Phone Subscriber Number Group Number Insured Name Patient Relationship to Insured Coverage Start Date Coverage End Date [employer] [address] [place] [phone] [id number] Davey Baxter Self - patient is the insured Medical (General) History Medical History History ICD Code Hypertension Hyperlipidemia Coronary artery disease BPH w/LUTS, frequency Melanoma, right leg Hemorrhoids Cataracts Adenomatous colon polyps GERD Sleep apnea Surgical History Surgery Date(Month/Year) Uvulopalatopharyngoplasty with Tonsillec cinthia 2003 Melanoma excisio, right leg 2016 Squamous cell carcinoma exci costa, 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
--- OUTSIDE RECORDS SUMMARY | 2025-05-12 13:04 | XMS_ITS | Patient Health Record ---
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 Name Role Phone Chavo Marin Primary Care Provider UnavailFRANCE Balbuena Unavailable [phone] Valdemar Larkin MD Unavailable Unavailable STEPH CRISTINA Unavailable [phone] Lasha Pichardo Unavailable [phone] Allergies Allergen (clinical drug ingredient) Drug/Non Drug Allergy documented on EMR Reaction Allergy Type Onset Date Status bee stings Unknown Allergy Active Substance with penicillin structure and antibacterial mechanism of action (substance) penicillins Unknown Drug Allergy Active Results Component Value Reference Range Notes PSA-Diagnostic Reviewed date:09/07/2024 11:39:10 AM Interpretation: Performing Lab: Notes/Report: PSA-Diagnostic Reviewed date:11/27/2024 04:43:23 PM Interpretation: Performing Lab: Notes/Report: PSA 2.61 .00-4.00 NG/ML PSA concentrations, regardless of the value, should not be interpreted as definitive evidence for the presence or absence of prostate cancer. Testing performed at: [address] [place] [address] CLIA ID [id number] CBC Reflex Man Diff Reviewed date:04/23/2025 09:21:50 AM Interpretation: Performing Lab: Notes/Report: Testing performed at: [address] [place] [address] CLIA ID [id number] WBC 10.5 4.5-11.0 X10'3 RBC 4.75 4.50-5.90 X10'6 Hgb 14.5 13.5-17.5 G/DL Hct 42.8 41.0-53.0 % MCV 90.1 80.0-100.0 FL MCH 30.5 27.0-31.0 PG MCHC 33.9 31.0-37.0 G/DL Platelet 287 150-400 X10'3 RDW-SD 42.3 35.0-49.0 FL RDW-CV 12.7 12.2-15.6 % MPV 10.0 9.2-12.0 FL Review Auto Diff Conf Estradiol Level Reviewed date:04/23/2025 09:21:37 AM Interpretation: Performing Lab: Notes/Report: Males < 0-52 Follicular Phase 11-165 Midcycle 146-526 Luteal Phase 33-133 Postmenopausal Female < 0-37 Test performed with Siemens Estradiol reagent assay. Siemens has confirmed the drug fulvestrant (Faslodex) may cause falsely elevated estradiol results when performed with this assay method. Fulvestrant (Faslodex) is an estrogen receptor antagonist which is used in the treatment of stage IV recurrent breast cancer in post- menopausal women with estrogen receptor positive breast cancer. Fulvestrant is used when other anti-estrogen drugs have failed. Fulvestrant has a similar chemical structure to estradiol and may cross-react with antibodies used in immunoassays. Testing performed at: [address] [address] CLIA ID [id number] Estradiol 77 Testosterone Total Reviewed date:04/23/2025 09:21:42 AM Interpretation: Performing Lab: Notes/Report: Testoster Tot 570.19 87.00-780.00 NG/DL Performed on the Siemens Atell[employer] IM Analyzer Testing performed at: [address] [address] CLIA ID [id number] Auto Diff Reviewed date:04/23/2025 09:21:46 AM Interpretation: Performing Lab: Notes/Report: Added by Discern Rules Neutro Auto% 70.1 40.0-70.0 % Lymph Auto% 20.1 22.0-44.0 % Hartley Auto% 6.7 3.0-7.0 % Eos Auto% 1.5 2.0-4.0 % Baso Auto% 0.9 0.0-1.0 % NRBC% .00 .00-.20 /100 int act WBC's Neutro Abs 7.34 .80-7.70 Absolute Neutrophil Count 7340 Lymph Abs 2.10 .10-4.10 Hartley Abs .70 .20-1.00 Eos Abs .16 .00-.40 Baso Abs .09 .00-.20 NRBC# .00 .00-.20 Imm Gran Abs .07 .00-.10 Imm Gran% .7 .0-.4 % Testing perform ed at: [address] [place] [address] CLIA ID [id number] Reviewed date:04/23/2025 09:21:34 AM Interpretation: Performing Lab: Notes/Report: Luteinizing Hrm 14.78 Reference Ranges: Normal menstruating. Follicular Phase 1.9-12.5. Midcycle Peak 8.7-76.3. Luteal Phase 0.5-16.9. <0.1-1.5. Postmenopausal 15.9-54.0. Contraceptives 0.7-5.6. Males 20-70 Years 1.5-9.3. >70 Years 3.1-34.6. Performed on the [employer] Solution IM Testing performed at: [address] [place] [address] CLIA ID [id number] Reason For Referral No Information Medications Medication SIG (Take, Route, Frequency, Duration) Notes Start Date End Date Status [facility] Products - as directed Orally Soltea *Reorder from [employer] for eRx and Interaction Alerts* Active Quercetin Complex Immune *please review for potential _update for e-prescription and drug interaction check* *Pick strength-form from [employer] for eRX* Active Aspirin Adult Low Dose 81 MG 1 tablet Orally Once a day Active Vitamin D (Cholecalciferol) 25 MCG (1000 UT) 1 capsule Orally Once a day Active Clomid 50 MG 1 tablet Orally Once a day; Duration: 90 days 01/04/2025 Active Isosorbide Mononitrate 20 MG 1 tablet Orally Twice a day Active Tamsulosin HCl 0.4 MG TAKE 1 CAPSULE BY MOUTH EVERY DAY WITH DINNER; Duration: 90 Active clomiPHENE Citrate 50 MG 1 tablet Orally Once a day; Duration: 90 days 01/02/2025 Active Chromium GTF 200 MCG 1 tablet Orally Once a day Active Losartan Potassium 50 MG 1 tablet Orally Once a day Active Vitamin B1 100 MG 1 tablet Orally Once a day Active Simvastatin 20 MG 1 tablet in the evening Orally Once a day Not-Taking Clomid 50 MG 1 tablet Orally Once a day; Duration: 90 days 01/04/2025 Active B Complex-B12 *Reorder from [employer] for eRx and Interaction Alerts* Active Zinc *please review for potential _update for e-prescription and drug interaction check* *Pick strength-form from [employer] for eRX* Active Chlorthalidone 25 MG TAKE ONE TABLET BY MOUTH EVERY DAY IN THE MORNING WITH FOOD; Duration: 90 Active Immunizations Vaccine Route Administration Date Status Comme nts Influenza (whole), CPT 80297 Inactive Unknown 04/12/2019 Administered Social History Tobacco Use: Social History Observation Description Date Details (start date - stop date) Never Smoker NA - NA Tobacco Control (Standard) Question Answer Notes Tobacco use: Nonsmoker AUDIT-C (Standard) Question Answer Notes Did you have a drink containing alcohol in the p ast year? No Points 0 Interpretation Negative Section Notes: Never smoked Caffiene Drinks Alcohol Never smoked, [...] Drinks Alcohol Never smoked Caffiene Drinks Alcohol Problems Problem Type SNOMED Code ICD Code Onset Dates Problem Status W/U Status Risk Notes Problem Information temporarily unavailable Post-void dribbling (N39.43) Active confirmed Problem Information temporarily unavailable Shortness of breath (R06.02) Active confirmed Problem Information temporarily unavailable Nocturia (R35.1) Active confirmed Problem Information temporarily unavailable Nonrheumatic aortic (valve) insufficiency (I35.1) Active confirmed Problem Information temporarily unavailable Essential hypertension (I10) Active confirmed Problem Information temporarily unavailable Family history of prostate cancer (Z80.42) Active confirmed Problem Information temporarily unavailable Urinary urgency (R39.15) Active confirmed Problem Information temporarily unavailable Erectile dysfunction, unspecified erectile dysfunction type (N52.9) Active confirmed Problem Information temporarily unavailable Fatigue (R53.83) Active confirmed Problem Information temporarily unavailable VIDES (dyspnea on exertion) (R06.09) Active confirmed Problem Information temporarily unavailable History of elevated PSA (Z87.898) Active confirmed Problem Information temporarily unavailable Hyperlipidemia (E78.5) Active confirmed Problem Information temporarily unavailable Elevated PSA (R97.20) Active confirmed Problem Information temporarily unavailable Prostate cancer screening (Z12.5) Active confirmed Problem Information temporarily unavailable Erectile dysfunction (N52.9) Active confirmed Problem Information temporarily unavailable Atherosclerosis of [place] coronary artery of [place] heart without angina pectoris (I25.10) Active confirmed Problem Information temporarily unavailable Erectile dysfunction, unspecified erectile dysfunction type (N52.9) Active confirmed Problem Information temporarily unavailable BPH loc w urin obs/LUTS (N40.1) Active confirmed Vital Signs Heart Rate 53 /min 01/02/2025 Blood pressure diastolic 64 mm Hg 01/02/2025 Weight-kg 112.95 kg 01/02/2025 Height 69 in 01/02/2025 Blood pressure systolic 104 mm Hg 01/02/2025 Weight 249 lbs 01/02/2025 BMI 36.77 kg/m2 01/02/2025 Procedures Procedure Date Ordered Date Performed Result Body Sit e Bladder Scan 11/27/2024 N/A Encounters Encounter Location Date Provider Diagnosis [facility], [facility] [address] [facility] [address] [place] [address] 11/27/2024 STEPH CRISTINA Nocturia R35.1 ; BPH loc w urin obs/LUTS N40.1 ; Erectile dysfunction N52.9 and Urinary urgency R39.15 [facility], [facility] [address] [place] [address] 01/02/2025 Lasha Kylee Nocturia R35.1 ; BPH loc w urin obs/LUTS N40.1 ; Erectile dysfunction N52.9 ; Urinary urgency R39.15 and Low testosterone E34.9 DO NOT USE THIS FACILITY [facility], [facility] [address] [place], [place] [id number] 09/07/2024 STEPH CRISTINA Elevated PSA R97.20 [facility], [facility] [address] [place] [address] 11/27/2024 STEPH CRISTINA BPH loc w urin obs/LUTS N40.1 ; Fatigue R53.83 and Nocturia R35.1 [facility], [facility] [address] [place] [address] 01/04/2025 Lasha Pichardo [facility], [facility] [address] [place] [address] 01/04/2025 FRANCE EGANCÉSAR Assessments Encounter Date Diagnosis (ICD Code) Assessment Notes Treatment Notes Treatment Clinical Notes Section Notes 11/27/2024 Nocturia (ICD-10 - R35.1) 1. Nocturia with urgency - R35.1 2. Overweight - E66.3 3. Fatigue - R53.83 4. Irec-[id number] condition - U09.9 5. Hemoptysis - R04.2 6. Arthralgia - M25.50 7. Myalgia - M79.1 This is a 59-year-old male with persistent urinary symptoms despite tamsulosin therapy, post-COVID symptoms including fatigue, myalgia, arthralgia, and occasional hemoptysis, with concerns about possible hypogonadism contributing to weight gain and fatigue. IPSS 11. 01/02/2025 Nocturia (ICD-10 - R35.1) This is a 59-year-old male with persistent urinary symptoms despite tamsulosin therapy, post-COVID symptoms including fatigue, myalgia, arthralgia, and occasional hemoptysis, with concerns about possible hypogonadism contributing to weight gain and fatigue. Discussed the concept behind his hypogonadal symptoms in detail. Pending initiation of TRT, reviewed all side effects of TRT depending on which route is agreed upon including: mood swings, hot flashes, acne, weight gain, increase blood counts, worsening sleep apnea, prostate growth, among others. We discussed risks vs benefits on testosterone supplementation especially senior care supplementation including close surveillance and follow up with repeat lab. If starting on TRT, we will plan for appropriate follow up and for reevaluation with continued mentioned safety labs. 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 After discussion of options, he is leaning towards starting Clomid to help boost testosterone levels. Previous labs reviewed along with all ways of administration were discussed in detail including jatenzo versus kyzatrex, injections, testosterone pellets, and/or topicals. Patient now understands the importance of appropriate diet and exercise regimen. Patient will return care in 3-4 months with new safety labs and symptom reassessment. For now, and through shared decision making we are in agreement with no further workup or intervention at this time with care plan, aside from what was mentioned. Patient has no other voiced concerns or questions. All questions that were asked, were answered. Patient satisfied with plan. 11/27/2024 BPH loc w urin obs/LUTS (ICD-10 - N40.1) 09/07/2024 Elevated PSA (ICD-10 - R97.20) 01/02/2025 Erectile dysfunction (ICD-10 - N52.9) This is a 59-year-old male with persistent urinary symptoms despite tamsulosin therapy, post-COVID symptoms including fatigue, myalgia, arthralgia, and occasional hemoptysis, with concerns about possible hypogonadism contributing to weight gain and fatigue. Discussed the concept behind his hypogonadal symptoms in detail. Pending initiation of TRT, reviewed all side effects of TRT depending on which route is agreed upon including: mood swings, hot flashes, acne, weight gain, increase blood counts, worsening sleep apnea, prostate growth, among others. 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 If starting on TRT, we will plan for appropriate follow up and for reevaluation with continued mentioned safety labs. He does have cardiac concerns and requests on to not be on TRT senior care. After discussion of options, he is leaning towards starting Clomid to help boost testosterone levels. Previous labs reviewed along with all ways of administration were discussed in detail including jatenzo versus kyzatrex, injections, testosterone pellets, and/or topicals. Patient now understands the importance of appropriate diet and exercise regimen. Patient will return care in 3-4 months with new safety labs and symptom reassessment. For now, and through shared decision making we are in agreement with no further workup or intervention at this time with care plan, aside from what was mentioned. Patient has no other voiced concerns or questions. All questions that were asked, were answered. Patient satisfied with plan. 01/02/2025 BPH loc w urin obs/LUTS (ICD-10 - N40.1) This is a 59-year-old male with persistent urinary symptoms despite tamsulosin therapy, post-COVID symptoms including fatigue, myalgia, arthralgia, and occasional hemoptysis, with concerns about possible hypogonadism contributing to weight gain and fatigue. Discussed the concept behind his hypogonadal symptoms in detail. Pending initiation of TRT, reviewed all side effects of TRT depending on which route is agreed upon including: mood swings, hot flashes, acne, weight gain, increase blood counts, worsening sleep apnea, prostate growth, among others. We discussed risks vs benefits on testosterone supplementation especially senior care supplementation including close surveillance and follow up with repeat lab. If starting on TRT, we will plan for appropriate follow up and for reevaluation with continued mentioned safety labs. He does have cardiac concerns and requests on to not be on TRT senior care. After discussion of options, he is leaning towards starting Clomid to help boost testosterone levels. Previous labs reviewed along with all ways of administration were discussed in detail including jatenzo versus kyzatrex, injections, testosterone pellets, and/or topicals. Patient now understands the importance of appropriate diet and exercise regimen. Patient will return care in 3-4 months with new safety labs and symptom reassessment. For now, and through shared decision making we are in agreement with no further workup or intervention at this time with care plan, aside from what was mentioned. Patient has no other voiced concerns or questions. All questions that were asked, were answered. Patient satisfied with plan. 11/27/2024 Fatigue (ICD-10 - R53.83) 11/27/2024 Erectile dysfunction (ICD-10 - N52.9) 1. Nocturia with urgency - R35.1 2. Overweight - E66.3 3. Fatigue - R53.83 4. Aoio-BMMTD-09 condition - U09.9 5. Hemoptysis - R04.2 6. Arthralgia - M25.50 7. Myalgia - M79.1 This is a 59-year-old male with persistent urinary symptoms despite tamsulosin therapy, post-COVID symptoms including fatigue, myalgia, arthralgia, and occasional hemoptysis, with concerns about possible hypogonadism contributing to weight gain and fatigue. IPSS 11. 11/27/2024 BPH loc w urin obs/LUTS (ICD-10 - N40.1) 1. Nocturia with urgency - R35.1 2. Overweight - E66.3 3. Fatigue - R53.83 4. Qkoc-ZXPFQ-11 condition - U09.9 5. Hemoptysis - R04.2 6. Arthralgia - M25.50 7. Myalgia - M79.1 This is a 59-year-old male with persistent urinary symptoms despite tamsulosin therapy, post-COVID symptoms including fatigue, myalgia, arthralgia, and occasional hemoptysis, with concerns about possible hypogonadism contributing to weight gain and fatigue. IPSS 11. 11/27/2024 Urinary urgency (ICD-10 - R39.15) 1. Nocturia with urgency - R35.1 2. Overweight - E66.3 3. Fatigue - R53.83 4. Hyzp-UNWZP-99 condition - U09.9 5. Hemoptysis - R04.2 6. Arthralgia - M25.50 7. Myalgia - M79.1 This is a 59-year-old male with persistent urinary symptoms despite tamsulosin therapy, post-COVID symptoms including fatigue, myalgia, arthralgia, and occasional hemoptysis, with concerns about possible hypogonadism contributing to weight gain and fatigue. IPSS . 01/02/2025 Urinary urgency (ICD-10 - R39.15) This is a 59-year-old male with persistent urinary symptoms despite tamsulosin therapy, post-COVID symptoms including fatigue, myalgia, arthralgia, and occasional hemoptysis, with concerns about possible hypogonadism contributing to weight gain and fatigue. Discussed the concept behind his hypogonadal symptoms in detail. Pending initiation of TRT, reviewed all side effects of TRT depending on which route is agreed upon including: mood swings, hot flashes, acne, weight gain, increase blood counts, worsening sleep apnea, prostate growth, among others. 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 If starting on TRT, we will plan for appropriate follow up and for reevaluation with continued mentioned safety labs. 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 After discussion of options, he is leaning towards starting Clomid to help boost testosterone levels. Previous labs reviewed along with all ways of administration were discussed in detail including jatenzo versus kyzatrex, injections, testosterone pellets, and/or topicals. Patient now understands the importance of appropriate diet and exercise regimen. Patient will return care in 3-4 months with new safety labs and symptom reassessment. For now, and through shared decision making we are in agreement with no further workup or intervention at this time with care plan, aside from what was mentioned. Patient has no other voiced concerns or questions. All questions that were asked, were answered. Patient satisfied with plan. 11/27/2024 Nocturia (ICD-10 - R35.1) 01/02/2025 Low testosterone (ICD-10 - E34.9) This is a 59-year-old male with persistent urinary symptoms despite tamsulosin therapy, post-COVID symptoms including fatigue, myalgia, arthralgia, and occasional hemoptysis, with concerns about possible hypogonadism contributing to weight gain and fatigue. Discussed the concept behind his hypogonadal symptoms in detail. Pending initiation of TRT, reviewed all side effects of TRT depending on which route is agreed upon including: mood swings, hot flashes, acne, weight gain, increase blood counts, worsening sleep apnea, prostate growth, among others. 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 If starting on TRT, we will plan for appropriate follow up and for reevaluation with continued mentioned safety labs. He does have cardiac concerns and requests on to not be on TRT senior care. After discussion of options, he is leaning towards starting Clomid to help boost testosterone levels. Previous labs reviewed along with all ways of administration were discussed in detail including jatenzo versus kyzatrex, injections, testosterone pellets, and/or topicals. Patient now understands the importance of appropriate diet and exercise regimen. Patient will return care in 3-4 months with new safety labs and symptom reassessment. For now, and through shared decision making we are in agreement with no further workup or intervention at this time with care plan, aside from what was mentioned. Patient has no other voiced concerns or questions. All questions that were asked, were answered. Patient satisfied with plan. 11/27/2024 Other # Urinary Symptoms Continue tamsulosin despite limited efficacy. Consider urology referral if symptoms continue to impact quality of life. Will reassess after hormone panel results. # Post-COVID Symptoms Order comprehensive lab panel including CBC to evaluate for anemia given hemoptysis. Consider chest imaging if hemoptysis persists. # Possible Hypogonadism Order testosterone level along with LH, FSH, and prolactin to evaluate hormonal status. Will review results at follow-up appointment. # Weight Management Encouraged continued weight loss efforts. Will reassess after hormone evaluation to determine if hormonal factors are contributing. # Follow-up Schedule appointment with Lasha in approximately one month to review lab results and discuss testosterone therapy if indicated. You came in today for your yearly check-up. Your PSA level is 2.61, which is stable and good news. We talked about your nighttime urination problems and how you need to get up often with strong urges to go. You also mentioned feeling tired all the time with achy joints and muscles since having COVID. Today we ordered blood tests to check your testosterone levels and other important values. These tests may help us understand why you're feeling tired and having trouble losing weight. Continue taking your tamsulosin pill once daily as prescribed. Please follow up with Lasha in about one month to go over your test results. We may discuss testosterone treatment at that time if your levels are low. Call the office if your cough gets worse or if you see more blood when coughing. 1. Nocturia with urgency - R35.1 2. Overweight - E66.3 3. Fatigue - R53.83 4. Rgkq-BDDSK-56 condition - U09.9 5. Hemoptysis - R04.2 6. Arthralgia - M25.50 7. Myalgia - M79.1 This is a 59-year-old male with persistent urinary symptoms despite tamsulosin therapy, post-COVID symptoms including fatigue, myalgia, arthralgia, and occasional hemoptysis, with concerns about possible hypogonadism contributing to weight gain and fatigue. IPSS 11. Plan Of Treatment Pending Test Test Name Order Date Urinalysis, Routine 11/27/2024 Urinalysis, Routine 11/22/2023 PSA, total (cpt 20404) 08/16/2023 Liver Function Test (LFT) 11/27/2024 Blood Urea Nitrogen (BUN) 76075 06/19/19 22 Creatinine (B) 96969 06/19/2021 PSA Diagnostic--48975 01/23/2022 Electrocardiogram (EKG) - 08845 11/26/19 CT Cardiac Scoring Diagnostic-54997 10/30 ELECTRO-UROFLOWMETRY FIRST 06/19/2021 CBC (H/H, RBC, INDICES, WBC, PLT) (1759) 11/27/2024 FSH (470) 11/27/2024 Bladder Scan 11/27/2024 CBC Reflex Man Diff 01/02/2025 Estradiol Level 01/02/2025 Testosterone Total 01/02/2025 Testosterone Total 11/27/2024 LH 11/27/2024 LH 01/02/2025 Prolactin Level 11/27/2024 Future Test Test Name Order Date PSA Diagnostic--73104 09/23/2021 PSA Diagnostic--96125 12/24/2021 PSA Diagnostic--09781 09/27/2022 PSA Diagnostic--82492 03/21/2023 Next Appt Details Provider Name:Lasha Pichardo, 05/21/2025 09:20:00 AM, [address] [place], [address], Insurance Providers Payer Name Payer Address Payer Phone Subscriber Number Group Number Insured Name Patient Relationship to Insured Coverage Start Date Coverage End Date [employer] [address] [place], [place] [id number] Davey Baxter Self - patient is the insured Medical (General) History Medical History History ICD Code hypertension hyperlipidemia coronary artery disease BPH w/LUTS, frequency COVID (/July 2021), declines vaccination Surgical History Surgery Date(Month/Year) UP3 skin cancer removed wisdom teeth removed pre cancerous skin cell removal
--- OUTSIDE RECORDS SUMMARY | 2025-05-12 13:06 | XMS_ITS | Clinical Summary ---
Author Organization [facility] Address [address] [place] [address] Care Team Providers Care Club Lounge Attendant Name Role Phone Unavailable Primary Care Provider Unavailabl e Allergies Active Allergy Reactions Criticality Noted Date Comments Penicillins Other (See Comments) High 11/21/2024 Welts, restricted airway Medications isosorbide mononitrate (IMDUR) 30 mg Extended Release 24 hour tablet Take 30 mg by mouth daily in the morning. Active losartan (COZAAR) 50 mg tablet Take 50 mg by mouth daily. Active bisoprolol (ZEBETA) 5 mg tablet Take 5 mg by mouth daily. Active chlorthalidone (HYGROTON) 50 mg tablet Take 50 mg by mouth daily. Decreased to 25 mg daily Active tamsulosin (FLOMAX) 0.4 mg capsule Take 0.4 mg by mouth daily. Active aspirin (ECOTRIN EC) 81 mg Tablet, Delayed Release (E.C.) Take 81 mg by mouth daily. Active viatamin B complex-vitamin B-jvamltcf-bsqi- folic acid 106 mg iron- 1 mg Tablet Take 1 Tablet by mouth daily. Active thiamine (VITAMIN B-1) 250 mg Tablet Take 250 mg by mouth daily. Active calcium CARBONATE-vitami n D3 (OSCAL) 250 mg-125 unit per tablet Take by mouth daily. Active omega-3 acid ethyl esters (LOVAZA) 1 gram Capsule Take 4 Grams by mouth daily. Active zinc GLUCONATE 30 mg Tablet Take by mouth. Ac tive spironolactone (ALDACTONE) 25 mg tablet Take 25 mg by mouth 2 times daily. Active Active Problems No known active problems Encounters Date Type Department Care Team Description 04/24/2025 External Device Data [facility] ABSTRACTION Provider, Abstract 04/24/2025 External Device Data [facility] ABSTRACTION Provider, Abstract 04/24/2025 External Device Data [facility] ABSTRACTION Provider, Abstract 03/28/2025 External Device Data [facility] ABSTRACTION Provider, Abstract 03/27/2025 External Device Data [facility] ABSTRACTION Provider, Abstract 03/27/2025 External Device Data [facility] ABSTRACTION Provider, Abstract 03/26/2025 3:36 PM CDT - 03/26/2025 4:14 PM CDT Hospital Encounter [facility] [address] [place] [address] Discharge Disposition: Home or Self Care from Last 3 Months Social History Tobacco Use Types Packs/Day Years Used Date Smoking Tobacco: Never Smokeless Tobacco: Former Tobacco Cessation:Counseling Given: Not Answered Sex and Gender Information Value Date Recorded Sex Assigned at Not on file Legal Sex Male 2:49 PM CDT Gender Identity Not on file Sexual Orientation Not on file Last Filed Vital Signs Vital Sign Reading Time Taken Comments Blood Pressure 122/64 12/25/2024 9:26 AM CDT Pulse 49 12/25/2024 9:00 AM CDT Temperature - - Respiratory Rate - - Oxygen Saturation 96% 12/25/2024 9:00 AM CDT Inhaled Oxygen Concentration - - Weight 114.8 kg (253 lb) 12/25/2024 9:26 AM CDT Height 175.3 cm (5' 9 ) 11/21/2024 11:18 AM CDT Body Mass Index 37.36 11/21/2024 11:18 AM CDT Plan of Treatment Upcoming Encounters Date Type Department Care Team (Late st Contact Info) Description 06/18/2025 9:30 AM EVENT STAFF Office Visit [facility] [address] [place] [id number] Roberta Mitchell MD [address] [place] [address] Health Maintenance Due Date Last Done Comments Pre-Diabetes and Diabetes Screening 1965 DTAP/TDAP/TD VACCINES (1 - Tdap) 09/28/1982 COLORECTAL SCREENING 09/28/2008 Colorectal Cancer Screening 09/28/2008 FIT-DNA Q 3 years 09/28/2008 FIT/FOBT Q 1 year 09/28/2008 Flex Sig/CT Colonography Q 5 years 09/28/2008 RSV VACCINE (60+ or ) (1 - Risk 50-74 years 1-dose series) 09/28/2013 ZOSTER VACCINE (1 of 2) 09/28/2013 INFLUENZA VACCINE (#1) 2024 Insurance BCBS OUT OF STATE
--- NOTE | 2025-05-12 13:15 | XRR_ITS ---
PROCEDURE INFORMATION: Exam: XR Right Shoulder Exam date and time: 05/12/2025 1:59 PM Age: 59 years old Clinical indication: Pain; Shoulder; Right; Additional Info: RT SHOULDER PAIN POST FALL TECHNIQUE: Imaging protocol: Radiologic exam of the right shoulder. Views: 2 or more views. COMPARISON: 1. CT chest wo con [id number] 05/12/2025 1:[address] cervical spin wo con* [id number] 05/12/2025 1:29 PM FINDINGS: Bones/joints: There is no evidence of fracture or dislocation. The acromioclavicular joint is normal. The subacromial joint space is well-preserved. The glenohumeral joint is normal. No joint effusion is present. Soft tissues: Visible lung tissue is normal. Tiny soft tissue calcification overlying the acromion. There are no soft tissue air or masses. XR/XR shoulder RT min 2V* [id number] IMPRESSION: 1. No significant acute fracture. 2. Question tiny cortical flake avulsion at the superior margin of the acromion.
--- NOTE | 2025-05-12 13:15 | CTR_ITS ---
PROCEDURE INFORMATION: Exam: CT Head Without Contrast Exam date and time: 05/12/2025 1:29 PM Age: 59 years old Clinical indication: Injury or Trauma; Fall; Blunt Trauma (Contusions or hematomas); Loss of consciousness unknown; Additional Info: fall, head injury TECHNIQUE: Imaging protocol: Computed tomography of the head without contrast. Radiation optimization: All CT scans at this facility use at least one of these dose optimization techniques: automated exposure control; mA and/or kV adjustment per patient size (includes targeted exams where dose is matched to clinical indication); or iterative reconstruction. COMPARISON: CT cervical spin wo con* [id number] 05/12/2025 1:29 PM RADIATION DOSE METRICS: Total DLP (mGy-cm): 1162.8 FINDINGS: Brain: There is no evidence of mass, mass effect or midline shift. Basilar cisterns and cortical sulci are within normal limits for age. No acute intracranial hemorrhage or definite ischemic change identified. No abnormal intra-axial or extra-axial fluid collections are appreciated. Brain parenchyma is of normal density and cabrera-white matter differentiation. Cerebral ventricles: Ventricles are within normal limits for age. Paranasal sinuses: Small air-fluid level in the right maxillary sinus. Postsurgical changes in the medial wall of the maxillary sinuses bilaterally. Mastoid air cells: No mastoid or middle ear mass or fluid. Bones: No fractures are identified. Soft tissues: Soft tissues of the scalp demonstrate a moderate left posterior parietal scalp hematoma measuring 1 cm maximum thickness and approximately 5 cm in size. No soft tissue foreign body or subcutaneous air appreciated. CT/CT head wo con* [id number] IMPRESSION: 1. No evidence of intracranial mass or acute disease. 2. Left parietal scalp hematoma. 3. Nonspecific air-fluid level in the right maxillary sinus with evidence of previous bilateral maxillary sinus surgery.
--- NOTE | 2025-05-12 13:15 | CTR_ITS ---
PROCEDURE INFORMATION: Exam: CT Chest Without Contrast; Diagnostic Exam date and time: 05/12/2025 1:34 PM Age: 59 years old Clinical indication: Chest wall pain and on breathing; Fall; Additional info: Traumatic chest pain TECHNIQUE: Imaging protocol: Diagnostic computed tomography of the chest without contrast. Radiation optimization: All CT scans at this facility use at least one of these dose optimization techniques: automated exposure control; mA and/or kV adjustment per patient size (includes targeted exams where dose is matched to clinical indication); or iterative reconstruction. COMPARISON: CT cervical spin wo con* [id number] 05/12/2025 1:29 PM RADIATION DOSE METRICS: Total DLP (mGy-cm): 768.26 FINDINGS: Lungs: Unremarkable. No consolidation. No masses. Pleural spaces: Unremarkable. No pneumothorax. No pleural effusion. Heart: Unremarkable. No cardiomegaly. No pericardial effusion. Coronary arteries: Moderate coronary artery calcifications. Lymph nodes: Unremarkable. No enlarged lymph nodes. Vasculature: Unremarkable. No aortic aneurysm. Bones/joints: No CT evidence of acute intrathoracic abnormality. Soft tissues: Unremarkable. CT/CT chest wo con [id number] IMPRESSION: No CT evidence of acute intrathoracic abnormality.
--- NOTE | 2025-05-12 13:16 | CTR_ITS ---
PROCEDURE INFORMATION: Exam: CT Cervical Spine Without Contrast Exam date and time: 05/12/2025 1:29 PM Age: 59 years old Clinical indication: Injury or Trauma; Fall; Blunt Trauma; Additional Info: fall, neck pain TECHNIQUE: Imaging protocol: Computed tomography of the cervical spine without contrast. Radiation optimization: All CT scans at this facility use at least one of these dose optimization techniques: automated exposure control; mA and/or kV adjustment per patient size (includes targeted exams where dose is matched to clinical indication); or iterative reconstruction. COMPARISON: No prior exams are available for comparison. RADIATION DOSE METRICS: Total DLP (mGy-cm): 574.3 FINDINGS: Bones/joints: No acute fracture. Normal alignment. C2-C3: No significant disc bulge or herniation. No severe spinal canal stenosis. No significant neural foraminal narrowing. C3-C4: No significant disc bulge or herniation. No severe spinal canal stenosis. Moderate to severe right-sided facet arthropathy. Moderate right neural foraminal narrowing. C4-C5: No significant disc bulge or herniation. No severe spinal canal stenosis. Moderate left-sided facet arthropathy. No significant neural foraminal narrowing. C5-C6: Moderate disc space narrowing. Anterior and posterior marginal endplate osteophytes. No significant disc bulge or herniation. No severe spinal canal stenosis. Uncovertebral joint hypertrophy bilaterally. Mild bilateral neural foraminal narrowing. C6-C7: Moderate disc space narrowing. Anterior and posterior marginal endplate osteophytes. No significant disc bulge or herniation. No severe spinal canal stenosis. Uncovertebral joint hypertrophy bilaterally. No bilateral neural foraminal narrowing. C7-T1: No significant disc bulge or herniation. No severe spinal canal stenosis. No significant neural foraminal narrowing. Paranasal sinuses: Bilateral maxillary sinus mucous retention cysts. Small air-fluid level in the right maxillary sinus. Larynx: Normal glottic structures. Salivary glands: Normal salivary glands. Thyroid: Normal thyroid gland. Lungs: Lung apices are normal. Lymph nodes: No significant adenopathy identified. Soft tissues: No retropharyngeal fluid noted. CT/CT cervical spin wo con* [id number] IMPRESSION: 1. No acute fracture. 2. Moderate to severe degenerative disc disease at C5-C6 and C6-C7. 3. Dles-vh-buojkzqp areas of foraminal stenosis related to degenerative changes, as noted above.
--- NOTE | 2025-05-12 13:16 | W.ED.FALL ---
HPI - Fall General: Chief Complaint: Fall Stated Complaint: fall Time Seen by Provider: 05/12/25 13:08 History of Present Illness: 59-year-old male with history of obesity, hypertension, who presents emergency room after having had a fall. He fell off of about a 3-1/2 foot tall workbench. He hit the left side of his head. He is having left rib pain and right shoulder pain. 100% on room air on arrival. Although he is a bit tachypneic. No loss of consciousness. No altered mental status. No nausea or vomiting. No focal motor deficits. Related Data Home Medications ?Medication ?Instructions ?Recorded ?Confirmed B-complex with vitamin C 1 cap PO QAM 01/12/25 05/12/25 bisoprolol fumarate 5 mg tablet 5 mg PO DAILY 01/12/25 05/12/25 chlorthalidone 25 mg tablet 25 mg PO DAILY 01/12/25 05/12/25 cholecalciferol (vitamin D3) 125 125 mcg PO DAILY 01/12/25 05/12/25 mcg (5,000 unit) capsule isosorbide mononitrate 30 mg 30 mg PO QAM 01/12/25 05/12/25 tablet,extended release 24 hr krill 1,000 mg-omega-3 230 mg-dha 1 cap PO QPM 01/12/25 05/12/25 60 tv-spe-fipgygqne-astaxan capsule (MegaRed [place]-3 Krill Oil) losartan 50 mg tablet 50 mg PO BID 01/12/25 05/12/25 spironolactone 25 mg tablet 25 mg PO BID 01/12/25 05/12/25 tamsulosin 0.4 mg capsule 0.4 mg PO QPM 01/12/25 05/12/25 thiamine HCl (vitamin B1) 100 mg 200 mg PO QPM 01/12/25 05/12/25 tablet vitamin C 500 mg-quercetin 225 1 cap PO QAM 01/12/25 05/12/25 mg-bioflavonoids, citrus 33 mg capsule (Quercetin Complex) zinc gluconate 30 mg tablet 30 mg PO DAILY 01/12/25 05/12/25 Plant Power Immune 2 cap PO QAM 05/12/25 05/12/25 Soltea Green 2 cap PO QAM 05/12/25 05/12/25 Ultimate Life Force 2 cap PO QAM 05/12/25 05/12/[address] 2 tab PO QAM 05/12/25 05/12/25 Ultimate Methylene Blue 2 drp PO QAM 05/12/25 05/12/25 Ultimate Sea Martin 10 ml PO QAM 05/12/25 05/12/25 berberine chloride 500 mg capsule 500 mg PO BID 05/12/25 05/12/25 chromium picolinate 200 mcg tablet 200 mcg PO QAM 05/12/25 05/12/25 Previous Rx's ?Medication ?Instructions ?Recorded cyclobenzaprine 10 mg tablet 10 mg PO Q8H PRN muscle spasm #20 05/12/25 tabs diclofenac sodium 50 mg 50 mg PO BID PRN pain #14 tabs 05/12/25 tablet,delayed release hydrocodone 5 mg-acetaminophen 325 1 tab PO Q6H PRN pain #20 tabs 05/12/25 mg tablet polyethylene glycol 3350 17 17 g PO DAILY #510 grams 05/12/25 gram/dose oral powder (Miralax) Allergies Allergy/AdvReac Type Severity Reaction Status Date / Time Penicillins Allergy Severe ALGY-Anaphy Verified 05/12/25 13:04 laxis Review of Systems Narrative: Constitutional symptoms: Negative except as documented in HPI. Skin symptoms: Negative except as documented in HPI. Eye symptoms: Negative except as documented in HPI. ENMT symptoms: Negative except as documented in HPI. Respiratory symptoms: Negative except as documented in HPI. Cardiovascular symptoms: Negative except as documented in HPI. Gastrointestinal symptoms: Negative except as documented in HPI. Genitourinary symptoms: Negative except as documented in HPI. Musculoskeletal symptoms: Negative except as documented in HPI. Neurologic symptoms: Negative except as documented in HPI. Psychiatric symptoms: Negative except as documented in HPI. Endocrine symptoms: Negative except as documented in HPI. PFSH ED PFSH: Social History Smoking and tobacco/nicotine status: never used tobacco/nicotine Physical Exam Narrative: EXAM NARRATIVE: General: Alert, no acute distress. Skin: Warm, dry. Head: Normocephalic, patient has a large hematoma on the left posterior occiput.. Neck: Supple, trachea midline. Eye: Extraocular movements are intact. Ears, nose, mouth and throat: mucosa moist. Cardiovascular: Regular, Normal peripheral perfusion. Respiratory: Lungs are clear to auscultation, respirations are non-labored, breath sounds are equal, Symmetrical chest wall expansion. Tenderness of the left ribs. Gastrointestinal: Soft, Nontender, Non distended Musculoskeletal: No obvious deformity of the right shoulder but he does have exquisite tenderness to palpation laterally. Neurological: Alert and oriented, No focal neurological deficit observed. Psychiatric: Cooperative, appropriate mood & affect. Course Vital Signs: Vital signs: Vital Signs Temperature 97.9 F 05/12/25 13:01 Pulse Rate 97 05/12/25 14:03 Respiratory Rate 12 05/12/25 14:03 Blood Pressure 155/92 05/12/25 14:03 Pulse Oximetry 92 05/12/25 14:03 MDM - Fall Medical Decision Making Medical decision making Patient's reason for coming to the emergency room: Fall, head injury, rib injury, shoulder injury Social determinants: Patient is employed. I reviewed the patient's medical record. Only 1 visit here previously it was to endocrine. He says he has borderline diabetes. I reviewed the patient's current home meds No anticoagulation Alternate historians: None Differential diagnosis including but not limited to and based on the above HPI, review of systems and physical exam: patient with fall and head injury. Subdural hematoma, subarachnoid hemorrhage, concussion, skull fracture. Orders placed to evaluate differential diagnosis based on the above differential, HPI and physical exam CT scan of the head was ordered. Differential diagnosis including but not limited to and based on the above HPI, review of systems and physical exam: In this patient with a musculoskeletal extremity traumatic injury and x-ray is being ordered to rule out fractures and dislocations. Orders placed to evaluate differential diagnosis based on the above differential, HPI and physical exam Differential diagnosis including but not limited to and based on the above HPI, review of systems and physical exam: In this patient with traumatic rib injury would have concern for pneumothorax, rib fractures, hemothorax etc. Orders placed to evaluate differential diagnosis based on the above differential, HPI and physical exam CT head: No acute intracranial process. No intracranial hemorrhage, no evidence of infarct. No evidence of acute fracture. This was reviewed and interpreted by myself the emergency room physician. I also reviewed the radiology report. CT of the cervical spine: No fracture. Good alignment. No step-offs. This was reviewed and interpreted by myself the emergency room physician. I also reviewed the radiologist report. CT of the chest: No acute process. No pneumothorax. No rib fractures. This was reviewed and interpreted by myself the emergency room physician. I also reviewed the radiology report. X-ray of the shoulder: No acute significant fractures. This was reviewed and interpreted by myself the emergency room physician. I also reviewed the radiology report. reexamination: Patient's pain did improve with pain medications. Also some nausea medicine. No increased work of breathing. No altered mental status. No nausea or vomiting. Discussed at length findings and incentive spirometry. Assessment and plan: Fall Head injury Rib contusion Shoulder injury ? IV Dilaudid and Zofran in the emergency room - Discharged home - Discussed plan with patient. Answered any questions. - Evaluation and treatment of this problem were appropriate in the emergency setting. Lab Data Radiology Impressions Chest CT 05/12/25 13:15 IMPRESSION: No CT evidence of acute intrathoracic abnormality. Head CT 05/12/25 13:15 IMPRESSION: 1. No evidence of intracranial mass or acute disease. 2. Left parietal scalp hematoma. 3. Nonspecific air-fluid level in the right maxillary sinus with evidence of previous bilateral maxillary sinus surgery. Shoulder X-Ray 05/12/25 13:15 IMPRESSION: 1. No significant acute fracture. 2. Question tiny cortical flake avulsion at the superior margin of the acromion. Cervical Spine CT 05/12/25 13:16 IMPRESSION: 1. No acute fracture. 2. Moderate to severe degenerative disc disease at C5-C6 and C6-C7. 3. Wfwk-mv-ybehnjjn areas of foraminal stenosis related to degenerative changes, as noted above. All radiology interpretation(s) finalized by discharge Discharge Plan Discharge Patient Disposition: Home Clinical Impression: Rib contusion, Head injury, Injury of shoulder Condition: Stable Prescriptions: New cyclobenzaprine 10 mg tablet 10 mg PO Q8H PRN (Reason: muscle spasm) Qty: 20 0RF hydrocodone-acetaminophen 5-325 mg tablet 1 tab PO Q6H PRN (Reason: pain) Qty: 20 0RF diclofenac sodium 50 mg tablet,delayed release (DR/EC) 50 mg PO BID PRN (Reason: pain) Qty: 14 0RF polyethylene glycol 3350 [Miralax] 17 gram/dose powder 17 g PO DAILY Qty: 510 0RF Rx Instructions: Take 1 scoop daily while taking pain medications. No Action losartan 50 mg tablet 50 mg PO BID isosorbide mononitrate 30 mg tablet extended release 24 hr 30 mg PO QAM thiamine HCl (vitamin B1) 100 mg tablet 200 mg PO QPM chlorthalidone 25 mg tablet 25 mg PO DAILY spironolactone 25 mg tablet 25 mg PO BID bisoprolol fumarate 5 mg tablet 5 mg PO DAILY zinc gluconate 30 mg tablet 30 mg PO DAILY tamsulosin 0.4 mg capsule 0.4 mg PO QPM cholecalciferol (vitamin D3) 125 mcg (5,000 unit) capsule 125 mcg PO DAILY B-complex with vitamin C Capsule 1 cap PO QAM ouvsm-fm-9-moq-swu-xmrdivw-ast [MegaRed [place]-3 Krill Oil] 1,000-230-60 mg capsule 1 cap PO QPM Quercetin Complex 500-225-33 mg capsule 1 cap PO QAM chromium picolinate 200 mcg Tablet 200 mcg PO QAM berberine chloride 500 mg Capsule 500 mg PO BID Plant Power Immune 2 cap PO QAM Soltea Green 2 cap PO QAM Ultimate Life Force 2 cap PO QAM Ultimate Methyl Drive 2 tab PO QAM Ultimate Methylene Blue 2 drp PO QAM Ultimate Sea Martin 10 ml PO QAM Discharge Orders: Discharge ED (Routine); Ordered 05/12/25 Ordered By: Mily Pool Referrals: Priyank Villalobos MD [Physician, Orthopedics] - 7-10 days Referral Note: Please call for an appointment with orthopedics if your shoulder pain persists Discharge Diet: Usual diet Patient Instructions: Opioid Safety, Pain Management, Patient Portal & Kurtis Instructions Activity Restrictions/Additional Instructions: Please be sure to use your incentive spirometer at least 2-3 times a day and/or take large deep breaths quite frequently to prevent developing pneumonia. If you develop cough and fever worsening chest pain return to the emergency room or your primary provider Thank you for choosing [facility] for your healthcare needs today. You have been screened and evaluated and felt safe for discharge. Health conditions do change or evolve sometimes and as such it is important that you follow up with your Primary Doctor to be re checked, 3-5 days is a general good time frame for follow up. You are always welcome to return to the ED for re assessment if your symptoms are worsening or you have new concerns Print Language: Kyrgyz Coding Level of Care Code ED Occupational Health Nurse Manager for Adilson Bautista
[2025-05-12] MEDS: ondansetron 2 mg/ML SDV 2 mL 4 MG IVP (13:54)
[2025-05-12] MEDS: HYDROmorphone 0.5 MG/0.5 ML INJ 1 MG IVP (13:55)
[2025-05-12 14:03] VITALS: BP 155/92; PULSE 97; RESP 12; O2SAT 92
[2025-05-12 15:43] VITALS: BP 127/90; PULSE 90; O2SAT 91
== END 2025-05-12 15:57 | disposition home or self-care (01) ==
PROVIDERS: Emergency Provider Emergency Medicine
DX: S20.20XA Contusion of thorax, unspecified, initial encounter (principal); S09.90XA Unspecified injury of head, initial encounter; S49.91XA Unspecified injury of right shoulder and upper arm, initial encounter; W17.89XA Other fall from one level to another, initial encounter
CPT/HCPCS: 70450; 71250; 72125; 73030; 93005; 96374; 96375; 99285; J1171; J2405

== ENCOUNTER 2025-05-21 11:19 | Outpatient (CLI) | payer BC, SELFPAY ==
[2025-05-21 12:10] LABS: Estmated Average Glucose 157; Hemoglobin A1C 7.1 % (4.0-6.0)
[2025-05-21 12:12] LABS: Alanine Aminotransferase 92 U/L (0-41); Albumin Level 4.4 g/dL (3.5-5.2); Alkaline Phosphatase 86 U/L (40-130); Anion Gap 15.4 (5-19); Aspartate Amino Transferase 49 U/L (0-40); Blood Urea Nitrogen 19 mg/dL (8-23); Calcium 10.2 mg/dL (8.5-10.5); Carbon Dioxide 29 mmol/L (22-29); Chloride 100 mmol/L (98-107); Cholesterol 245 mg/dL (0-200); Globulin 2.5 g/dL (1.3-4.6); Glucose 151 mg/dL (65-115); HDL Cholesterol 33 mg/dL (60-100); Osmolality Calculated 295 mOsm/kg (285-295); Potassium 4.4 mmol/L (3.5-5.1); Sodium 140 mmol/L (136-145); Total Protein 6.9 g/dL (6.6-8.7); Triglycerides 519 mg/dL (0-150)
[2025-05-21 12:38] LABS: Creatinine Urine, Random 100 mg/dL (39-259); Microalbum Creatinine Ratio Ur 10 mg/dL (0-20)
== END 2025-05-21 11:20 | disposition home or self-care (01) ==
PROVIDERS: Visit Provider Internal Medicine
DX: E11.9 Type 2 diabetes mellitus without complications (principal)
CPT/HCPCS: 80053; 80061; 82044; 83036; 83721